=== PATIENT | male | born 1945 | race Caucasian/White ===

== ENCOUNTER 2021-04-19 05:25 | Day surgery (SDC) | payer OTHER ==
[~2021-04-19 05:25] MED LIST: DIOVAN320 MG PO
== END 2021-04-19 16:09 | disposition home or self-care (01) ==
LOC: CIR.AMB 05:25
PROVIDERS: ATTEND Surgery
DX: K40.30 Unilateral inguinal hernia, with obstruction, without gangrene, not specified as recurrent (principal)